=== PATIENT | female | born 1945 | race African-American/Black ===

== ENCOUNTER 2017-02-15 20:21 | Emergency (ER) | payer MEDICARE ==
[2017-02-15 20:47] VITALS: BP 150/86; PULSE 68; TEMP 97.8; BMI 28.9
--- NOTE | 2017-02-15 22:36 | PDOC ---
History of Present Illness - General Chief Complaint: Pain Stated Complaint: LT FOOT PAIN Time Seen by Provider: 02/15/17 21:25 History Source: Patient - History of Present Illness Initial Comments: 02/15/17 23:31 71 year old female with left ankle swelling and pain since 3.30 pm. denies SOB , pleuritic chest pain, headache, dizziness, NVD abdominal pain. patient does not recall injury. Past History - Past Medical History Allergies/Adverse Reactions: Allergies Allergy/AdvReac Type Severity Reaction Status Date / Time No Known Allergies Allergy Verified 02/15/17 20:44 Home Medications: Ambulatory Orders Amlodipine Besylate [Norvasc -] 5 mg PO DAILY 01/17/15 Aspirin [ASA -] 81 mg PO DAILY 01/17/15 HTN: Yes Hypercholesterolemia: Yes Seizures: Yes - Psycho/Social/Smoking Cessation Hx Anxiety: No Suicidal Ideation: No Smoking History: Never smoked Information on smoking cessation initiated: No Hx Alcohol Use: No Drug/Substance Use Hx: No Substance Use Type: None *Physical Exam - Vital Signs Last Vital Signs Temp Pulse Resp BP Pulse Ox 97.8 F 68 18 150/86 98 02/15/17 20:44 02/15/17 20:44 02/15/17 20:44 02/15/17 20:44 02/15/17 20:44 - Physical Exam General Appearance: Yes: Appropriately Dressed Respiratory/Chest: positive: Lungs Clear, Normal Breath Sounds Extremity: positive: Other (left ankle swelling, limited rom, unable to fully weight bear, + pedal pulse) Integumentary: positive: Normal Color, Dry, Warm Neurologic: positive: Fully Oriented, Alert, Normal Mood/Affect *DC/Admit/Observation/Transfer Diagnosis at time of Disposition: Ankle edema Left ankle sprain Qualifiers: Encounter type: initial encounter Involved ligament of ankle: unspecified ligament Qualified Code(s): S93.402A - Sprain of unspecified ligament of left ankle, initial encounter - Discharge Dispostion Disposition: HOME - Referrals Referrals: Jomar Ayala MD [Primary Care Provider] - Tino Liz MD [Staff Physician] - - Patient Instructions Printed Discharge Instructions: Ankle Sprain Additional Instructions: elevate your leg take tylenol/ ibuprofen for pain rest and ICE. follow up with orthopedic as soon as possible. - Post Discharge Activity Work/School Note: Back to Work
[2017-02-15] MEDS ORDERED: IBUPROFEN 600 MG TABLET (FP) PO ONE ×2 (23:31→23:35)
--- NOTE | 2017-02-15 23:56 | PDOC ---
*Physical Exam - Vital Signs Last Vital Signs Temp Pulse Resp BP Pulse Ox 97.8 F 68 18 150/86 98 02/15/17 20:44 02/15/17 20:44 02/15/17 20:44 02/15/17 20:44 02/15/17 20:44 ED Treatment Course - Medications Given in the ED: ED Medications Discontinued Medications Generic Name Dose Route Start Last Admin Trade Name Rhonda PRN Reason Stop Dose Admin Ibuprofen 600 mg 02/15/17 23:31 02/15/17 23:43 Motrin - PO 02/15/17 23:32 600 mg ONCE ONE Administration Medical Decision Making - Medical Decision Making 02/15/17 23:56 agree with care from KIRIT Flores *DC/Admit/Observation/Transfer Diagnosis at time of Disposition: Ankle edema Left ankle sprain Qualifiers: Encounter type: initial encounter Involved ligament of ankle: unspecified ligament Qualified Code(s): S93.402A - Sprain of unspecified ligament of left ankle, initial encounter - Discharge Dispostion Disposition: HOME - Referrals Referrals: Tino Liz MD [Staff Physician] - Jomar Ayala MD [Primary Care Provider] - - Patient Instructions Printed Discharge Instructions: Ankle Sprain Additional Instructions: elevate your leg take tylenol/ ibuprofen for pain rest and ICE. follow up with orthopedic as soon as possible. - Post Discharge Activity Work/School Note: Back to Work
== END 2017-02-16 00:08 | disposition home or self-care (01) ==
LOC: JER 20:21
DX: S93.402A Sprain of unspecified ligament of left ankle, initial encounter (principal); I10 Essential (primary) hypertension; E78.00 Pure hypercholesterolemia, unspecified; G40.909 Epilepsy, unspecified, not intractable, without status epilepticus
CPT/HCPCS: 73610-TC-LT; 73630-TC-LT; 93971-TC; 99281-25

== ENCOUNTER 2020-07-23 07:20 | Inpatient (IN) | payer OTHER ==
[2020-07-23 09:01] LABS: BASO % 0.3 % (0-2.0); EOS % 0.9 % (0-4.5); HEMATOCRIT 38.2 % (32.4-45.2); HEMOGLOBIN 12.6 GM/dL (10.7-15.3); LYMPH % 27.1 % (8-40); MCH 30.7 pg (25.7-33.7); MCHC 33.1 g/dl (32.0-36.0); MEAN CELL VOLUME 92.9 fl (80-96); MONO % 6.9 % (3.8-10.2); NEUT % 64.8 % (42.8-82.8); PLATELET COUNT 190 K/MM3 (134-434); RBC 4.11 M/mm3 (3.60-5.2); RDW 13.4 % (11.6-15.6)
[2020-07-23 09:09] LABS: INR 0.94 (0.83-1.09); PROTHROMBIN TIME (PATIENT) 11.4 SEC (9.7-13.0)
[2020-07-23 09:12] LABS: ACTIVATED PTT 31.9 SECONDS (25.2-36.5)
[2020-07-23] MEDS ORDERED: MECLIZINE HCL 25 MG TABLET (FP) PO ONE (09:16)
[2020-07-23 09:27] LABS: CHLORIDE 108 mmol/L (98-107); POTASSIUM 3.9 mmol/L (3.5-5.1); SODIUM 142 mmol/L (136-145)
[2020-07-23 09:29] LABS: ALBUMIN 3.6 g/dl (3.4-5.0); CALCIUM 8.9 mg/dL (8.5-10.1)
[2020-07-23 09:30] LABS: ANION GAP 7 MMOL/L (8-16); BLOOD UREA NITROGEN 13.3 mg/dL (7-18); CO2 27 mmol/L (21-32); GLUCOSE,RANDOM 96 mg/dL (74-106)
[2020-07-23 09:33] LABS: CREATININE 0.7 mg/dL (0.55-1.3); SGOT/AST 19 U/L (15-37); SGPT/ALT 22 U/L (13-61)
[2020-07-23 09:34] LABS: BILIRUBIN,TOTAL 0.5 mg/dL (0.2-1); TOT PROT 7.7 g/dl (6.4-8.2)
[2020-07-23 09:35] LABS: ALK PHOS 79 U/L (45-117)
[2020-07-23] MEDS ORDERED: MECLIZINE HCL 25 MG TABLET (FP) ONE (09:44)
[2020-07-23] MEDS ORDERED: MECLIZINE HCL 25 MG TABLET (FP) PO PRN (22:44)
[2020-07-24 00:58] VITALS: BMI 28.1
[2020-07-24] MEDS: LEVOTHYROXINE NA 75 MCG TABLET (FP) PO SCH (06:12)
[2020-07-24 06:46] LABS: BASO % 0.3 % (0-2.0); HEMATOCRIT 37.2 % (32.4-45.2); HEMOGLOBIN 12.5 GM/dL (10.7-15.3); LYMPH % 42.4 % (8-40); MCH 31.3 pg (25.7-33.7); MCHC 33.5 g/dl (32.0-36.0); MEAN CELL VOLUME 93.5 fl (80-96); MEAN PLT VOLUME 9.2 fl (7.5-11.1); MONO % 7.4 % (3.8-10.2); NEUT % 47.9 % (42.8-82.8); PLATELET COUNT 193 K/MM3 (134-434); RBC 3.97 M/mm3 (3.60-5.2); RDW 13.4 % (11.6-15.6); WHITE BLOOD COUNT 4.2 K/mm3 (4.0-10.0)
[2020-07-24 07:01] LABS: POTASSIUM 3.7 mmol/L (3.5-5.1)
[2020-07-24 07:03] LABS: ALBUMIN 3.1 g/dl (3.4-5.0); CALCIUM 8.3 mg/dL (8.5-10.1)
[2020-07-24 07:04] LABS: BLOOD UREA NITROGEN 16.5 mg/dL (7-18)
[2020-07-24 07:07] LABS: CREATININE 0.7 mg/dL (0.55-1.3)
[2020-07-24 07:08] LABS: BILIRUBIN,TOTAL 0.6 mg/dL (0.2-1); TOT PROT 7.1 g/dl (6.4-8.2)
[2020-07-24] MEDS: amLODIPine BESYLATE 5 MG TABLET (FP) PO SCH (09:59)
[2020-07-24] MEDS: HEPARIN NA (PORCINE) 5,000 UNITS/ML 1ML VIAL SQ SCH ×2 (09:59→21:47)
[2020-07-24] MEDS: EZETIMIBE 10 MG TABLET (FP) PO SCH (09:59)
[2020-07-24] MEDS: ASPIRIN 81 MG CHEWABLE TABLETS PO SCH (11:11)
[2020-07-24] MEDS: ATORVASTATIN CA 80 MG TABLET (FP) PO SCH (21:47)
[2020-07-25] MEDS: LEVOTHYROXINE NA 75 MCG TABLET (FP) PO SCH (06:04)
[2020-07-25] MEDS: amLODIPine BESYLATE 5 MG TABLET (FP) PO SCH (09:02)
[2020-07-25] MEDS: HEPARIN NA (PORCINE) 5,000 UNITS/ML 1ML VIAL SQ SCH ×2 (09:02→21:57)
[2020-07-25] MEDS: ASPIRIN 81 MG CHEWABLE TABLETS PO SCH (09:03)
[2020-07-25] MEDS: EZETIMIBE 10 MG TABLET (FP) PO SCH (09:03)
[2020-07-25] MEDS: ATORVASTATIN CA 80 MG TABLET (FP) PO SCH (21:57)
[2020-07-26] MEDS: LEVOTHYROXINE NA 75 MCG TABLET (FP) PO SCH (06:22)
[2020-07-26] MEDS: EZETIMIBE 10 MG TABLET (FP) PO SCH (09:36)
[2020-07-26] MEDS: ASPIRIN 81 MG CHEWABLE TABLETS PO SCH (09:36)
[2020-07-26] MEDS: amLODIPine BESYLATE 5 MG TABLET (FP) PO SCH (09:36)
[2020-07-26] MEDS: HEPARIN NA (PORCINE) 5,000 UNITS/ML 1ML VIAL SQ SCH (09:37)
[2020-07-26 10:54] VITALS: BP 146/73; PULSE 61; TEMP 98.4
== END 2020-07-26 14:01 | disposition home or self-care (01) | DRG 149 ==
LOC: JER 07:20 → JERBED 10:01 → J4S 23:59
PROVIDERS: ADMIT Internal Medicine; ATTEND Internal Medicine
DX: R42 Dizziness and giddiness (principal); I10 Essential (primary) hypertension; E03.9 Hypothyroidism, unspecified; E78.5 Hyperlipidemia, unspecified; R00.1 Bradycardia, unspecified; I45.10 Unspecified right bundle-branch block
CPT/HCPCS: 36415; 70450-TC; 70545-TC; 80053; 84443; 84484; 85025; 85610; 85730; 86900; 93005; 93010; 93306-TC; 93880-TC; 97116-GP; 97161-GP; 99285-25; C9803; J1644; U0003